=== PATIENT | male | born 1990 | race Caucasian/White ===

== ENCOUNTER 2021-01-20 10:44 | Emergency (ER) | payer OTHER ==
[2021-01-20 11:06] VITALS: BP 127/80; PULSE 77; TEMP 99; BMI 24.4
[2021-01-20] MEDS ORDERED: MAG HYDROX/AL HYDROX/SIMETH 30 ML UNIT-DOSE CUP PO ONE (11:16)
[2021-01-20] MEDS ORDERED: LIDOCAINE VISCOUS 2% ORAL/TOP 15 ML UNIT-DOSE CUP MM ONE (11:17)
[2021-01-20] MEDS ORDERED: MAG HYDROX/AL HYDROX/SIMETH 30 ML UNIT-DOSE CUP ONE (11:27)
[2021-01-20] MEDS ORDERED: LIDOCAINE VISCOUS 2% ORAL/TOP 15 ML UNIT-DOSE CUP ONE (11:27)
== END 2021-01-20 13:02 | disposition home or self-care (01) ==
LOC: FER 10:44
DX: R13.10 Dysphagia, unspecified (principal); J02.9 Acute pharyngitis, unspecified
CPT/HCPCS: 71046-TC-FY; 99283-25

== ENCOUNTER 2021-04-28 17:13 | Emergency (ER) | payer OTHER ==
[2021-04-28 17:27] VITALS: BP 125/79; PULSE 88; TEMP 98.8; BMI 23.5
[2021-04-28] MEDS ORDERED: ONDANSETRON 4 MG/2 ML VIAL IVPB ONE (17:29)
[2021-04-28] MEDS ORDERED: SODIUM CHLORIDE 0.9% 500 ML INFUS.BAG IV ONE (17:29)
[2021-04-28] MEDS ORDERED: FAMOTIDINE 20 MG/50 ML IVPB 20 MG/50 ML MG IVPB ONE (17:30)
== END 2021-04-28 18:17 | disposition home or self-care (01) ==
LOC: FER 17:13
DX: R19.7 Diarrhea, unspecified (principal)
CPT/HCPCS: 71046-TC-FY; 93005; 99284-25